=== PATIENT | female | born 1980 | race Caucasian/White ===

== ENCOUNTER 2016-11-19 08:03 | Inpatient (IN) | payer BC, OTHER ==
[~2016-11-19] VITALS: Ht 170.2 cm; Wt 54.4 kg
[2016-11-20 12:00] VITALS: BP 130/94
[2016-11-20] MEDS ORDERED: LOPERAMIDE HCL 2 MG CAPSULE PO PRN ×2 (13:00)
[2016-11-20] MEDS ORDERED: MIRALAX 17 GM POWD.PACK PO PRN (13:00)
[2016-11-20] MEDS ORDERED: IBUPROFEN 400 MG TABLET PO PRN (13:00)
[2016-11-20] MEDS ORDERED: MAG HYDROX/AL HYDROX/SIMETH 30 ML LIQUID UDC PO PRN (13:00)
[2016-11-20] MEDS ORDERED: LORAZEPAM 2 MG/1 ML VIAL IM PRN (13:00)
[2016-11-20] MEDS ORDERED: diphenhydrAMINE 50 MG CAPSULE PO PRN (13:00)
[2016-11-20] MEDS ORDERED: DICYCLOMINE HCL 20 MG TABLET PO PRN (13:00)
[2016-11-20] MEDS ORDERED: CLONIDINE HCL 0.1 MG TABLET PO PRN (13:00)
[2016-11-20] MEDS ORDERED: MAGNESIUM HYDROXIDE 30 ML LIQUID UDC PO PRN (13:00)
[2016-11-20] MEDS ORDERED: LORAZEPAM 1 MG TABLET PO PRN (13:00)
[2016-11-20] MEDS ORDERED: ACETAMINOPHEN 325 MG TABLET PO PRN (13:00)
[2016-11-20] MEDS ORDERED: HYDROXYZINE PAMOATE 25 MG CAPSULE PO PRN (13:00)
[2016-11-20] MEDS ORDERED: THIAMINE HCL 200 MG/2 ML VIAL IM ONE (13:00)
[2016-11-20] MEDS ORDERED: ONDANSETRON ODT 4 MG TAB.RAPDIS SL PRN (13:00)
--- NOTE | 2016-11-20 13:00 | NUR ---
Admissions Note 36 year old female admitted to [facility] for alcohol withdrawal. Client reports PMH of Anxiety, depression, alcohol use. Client is oriented to unit, educated about protocols and how to work TV and call light in her room. Initial VS up on admission were: BP: 130/94 HR 89 T: 98.0 R: 18 SpO2: 98% on RA, Pain 0/10. Weight: 120 pounds. Height: 5'7" CIWA: 6 Client appears anxious, fidgety, flushed face noted, skin intact with fading skin discoloration on right arm and right hip she said she must have bumped into some furiture while under the influence of alcohol. skin warm, moist. Bilateral lung clear on auscultation, abdomen soft, non-tender, no edema noted. Client is hyperverbal and doesn't remember exact dates at this time. Client reports allergy to erythromycin. Regular diet ordered. Full code status ordered. Client denies any history of seizures. Past medical history of Anxiety and depression. LBM was 11/20/16, small/brown/soft. Client's PCP is Dr. Ethel Henriquez. She gives verbal consent for pna vaccine and HIV testing. Client reports taking Microgestin Fe 1/20 daily at night time. Client states that he lives with her Mom. Client substance use is as follow, she first started drinking five years ago and soon increase her intake, she has hx of a piror detoxification treatment at [facility] for 4 days in 2014, followed with 90 days treatment at [facility] on 2014, Her longest period of sobriety is 150 days from Apr 2015-aug 2015, when she relapsed due to her depression since then she has been consuming 8-10 shots of Vodka PO 4-[address] Aragon made aware of admitting client. Urine was collected upon admission. All safety measures instituted. Seizure precaution. Call light within reach. Will continue to monitor.
[2016-11-20 13:03] LABS: *URINE HCG, QUAL NEGATIVE (NEGATIVE)
[2016-11-20 13:34] LABS: BASOPHILS # (AUTO) 0.3 K/uL (0.0-0.2); BASOPHILS % (AUTO) 4.8 % (0.0-2.0); EOSINOPHILS % (AUTO) 0.4 % (0.0-7.0); HEMATOCRIT 41.3 % (37.0-47.0); LYMPHOCYTES # (AUTO) 2.3 K/uL (0.8-4.8); LYMPHOCYTES % (AUTO) 31.9 % (20.5-51.5); MEAN CORPUSCULAR HGB CONC 34 g/dL (32.0-37.0); MEAN CORPUSCULAR VOLUME 88.6 fL (81.0-99.0); MONOCYTES # (AUTO) 0.1 K/uL (0.1-1.30); MONOCYTES % (AUTO) 1.9 % (0.0-11.0); NEUTROPHILS # (AUTO) 4.5 K/uL (1.8-8.9); PLATELET COUNT (AUTO) 189 K/uL (150-450); RED BLOOD CELL COUNT(AUTO) 4.66 MIL/uL (4.20-5.40); RED CELL DISTRIBUTION WIDTH 13.2 % (11.5-14.5); WHITE BLOOD COUNT (AUTO) 7.2 K/uL (4.0-11.2)
[2016-11-20 13:42] VITALS: BP 148/96
[2016-11-20] MEDS: LORAZEPAM 1 MG TABLET PO PRN ×2 (13:42→21:29)
[2016-11-20] MEDS: FOLIC ACID 1 MG TABLET PO SCH (13:42)
--- NOTE | 2016-11-20 13:42 | NUR ---
PRN ATIVAN 1MG Client reports nausea, no episodes of vomiting, she is anxious and irritable MB increased P100, raising her voice. skin moist, CIWA 7. Ativan 1mg PO administered, will continue to monitor. Call light within reach.
--- NOTE | 2016-11-20 13:42 | NUR ---
VIT B1 INJ administered IM to Right deltoid, tolerated well.
[2016-11-20 13:48] LABS: ALBUMIN 4.8 g/dL (3.4-5.0); BILIRUBIN,TOTAL 0.5 mg/dL (0.2-1.0); CALCIUM 8.8 mg/dL (8.5-10.1); CREATININE 0.8 mg/dL (0.6-1.3); MAGNESIUM 2.1 mg/dL (1.8-2.4); POTASSIUM 3.6 mmol/L (3.5-5.1); TOTAL PROTEIN, SERUM 9.2 g/dL (6.4-8.2)
[2016-11-20 13:55] LABS: *AMPHETAMINE, URINE NEGATIVE (NEGATIVE); *BARBITURATE, URINE NEGATIVE (NEGATIVE); *CANNABINOID, URINE NEGATIVE (NEGATIVE); *COCCAINE, URINE NEGATIVE (NEGATIVE); *OPIATE, URINE NEGATIVE (NEGATIVE); *PHENCYCLIDINE SCREEN,URINE NEGATIVE (NEGATIVE)
--- NOTE | 2016-11-20 14:01 | NUR ---
CRITICAL VALUE % ETHYL ALCOHOL 0.38% Dr. Aragon made aware, he is with client at this time, no new orders. Will continue to follow up.
[2016-11-20 14:02] LABS: THYROID STIMULATING HORMONE 0.498 mIU/mL (0.358-3.740)
[2016-11-20 14:09] LABS: HIV-1 p24 ANTIGEN NON REACTIVE (NONREACTIVE); HIV-1/2 ANTIBODY NON REACTIVE (NONREACTIVE)
--- NOTE | 2016-11-20 14:42 | NUR ---
REASSESSMENT PRN ATIVAN 1MG Client reports some relief from nausea, she appears less anxious P 88, her voice is soft. skin warm. CIWA 3. Ativan 1mg effective. Call light within reach
[2016-11-20] MEDS ORDERED: NORE-83 PO (16:04)
[2016-11-20] MEDS: GABAPENTIN 300 MG CAPSULE PO SCH (17:13)
--- NOTE | 2016-11-20 19:15 | NUR ---
START OF SHIFT Received 36 year old female patient admitted on 11/20/16 for ETOH dependency. Pt is full code with allergy to erythromycin. She reports a hx of depression, anxiety, breast augmentation 2014 and rhinoplasty in 1999. She reports drinking 8-10 shots 4-5 times per week. She denies history of seizure. She has PRN Ativan available. Per endorsement, she received PRN Ativan for CIWA: 7. Pt is alert and oriented x4, breathing is even and unlabored. Pt safe with bed locked in lowest position, side rails up x2 and call light within reach. Will continue to monitor.
--- NOTE | 2016-11-20 19:42 | NUR ---
END OF SHIFT Client is in room, sound asleep. PRN Ativan 1mg PO for CIWA 7, noted effective. She is on PRN Ativan to help with withdrawal symptoms. She reports allergy to EES, full code, regular diet. LBM 11/20/16. Zeisure precautions. Adequate intake and output. Call light within reach. Endorsed to incoming nurse.
[2016-11-20 20:00] VITALS: BP 139/90
[2016-11-20] MEDS: MICROGESTIN FE PO SCH (21:29)
--- NOTE | 2016-11-20 21:29 | NUR ---
PRN ATIVAN Pt complains of anxiety/restlessness. CIWA: 6. PRN Ativan 1 mg administered as ordered. Breathing even and unlabored, safety measures in place. Will continue to monitor effectiveness of medication.
--- NOTE | 2016-11-20 22:29 | NUR ---
PRN ATIVAN REASSESSMENT PRN medication effective. Pt reports decrease in anxiety/restlessness. CIWA:4. Breathing even and unlabored, safety measures in place. Will continue to monitor.
[2016-11-21] VITALS: BP 135/89
[2016-11-21 04:00] VITALS: BP 134/90
--- NOTE | 2016-11-21 07:15 | NUR ---
END OF SHIFT Pt is a 36 year old female patient admitted on 11/20/16 for ETOH dependency. Pt is full code with allergy to erythromycin. She reports a hx of depression, anxiety, breast augmentation 2014 and rhinoplasty in 1999. She denies history of seizure. She has PRN Ativan available. She received PRN Ativan for CIWA:6. She slept a total of 5 hrs, Intake: 1500 mL, Void: x1, BM: 0. CIWA: 4. Pt remains alert and oriented x4, breathing is even and unlabored. Pt safe with bed locked in lowest position, side rails up x2 and call light within reach. Endorsed to oncoming shift.
--- NOTE | 2016-11-21 07:30 | NUR ---
START OF SHIFT Received 36 year old female in bed, she sounds asleep, easy to arouse, RR 16. skin warm/dry to touch. She [facility] for ETOH withdrawal. She is full code with allergy to erythromycin. Regular diet. She denies any withdrawal induced-seizure. past medical history, anxiety, depression. Past surgical history breast augmentation (2014), Rhinoplasty (1999). She reports drinking 8-10 shots 4-5 days per week. PRN Ativan available to help with withdrawal symptoms. PRN Ativan 1mg for CIWA: 7, noted effective CIWA 4. bed locked in lowest position, side rails up/padded x2 and call light within reach. Will continue to monitor.
[2016-11-21 08:13] VITALS: BP 142/97
[2016-11-21] MEDS ORDERED: TUBERCULIN,PURIF.PROT.DERIV. 5 TU/0.1 ML TEST ID ONE (09:00)
[2016-11-21] MEDS: SERTRALINE HCL 50 MG TABLET PO SCH (09:35)
[2016-11-21] MEDS: THIAMINE HCL 100 MG TABLET PO SCH (09:35)
[2016-11-21] MEDS: GABAPENTIN 300 MG CAPSULE PO SCH ×2 (09:36→16:53)
[2016-11-21] MEDS: MULTIVITAMINS,THERAPEUTIC TABLET PO SCH (09:36)
[2016-11-21] MEDS: DOCUSATE SODIUM 250 MG CAPSULE PO SCH (09:36)
[2016-11-21] MEDS: FOLIC ACID 1 MG TABLET PO SCH (09:36)
--- NOTE | 2016-11-21 09:39 | NUR ---
Client refused TB test per Dr. Aragon to order XR chest Medical clearance of TB.
[2016-11-21 12:00] VITALS: BP 140/97
[2016-11-21] MEDS ORDERED: Sertraline Hcl PO (12:40)
[2016-11-21] MEDS ORDERED: Gabapentin PO (12:40)
[2016-11-21 15:04] LABS: *AMPHETAMINE, URINE NEGATIVE (NEGATIVE); *BARBITURATE, URINE NEGATIVE (NEGATIVE); *CANNABINOID, URINE NEGATIVE (NEGATIVE); *COCCAINE, URINE NEGATIVE (NEGATIVE); *OPIATE, URINE NEGATIVE (NEGATIVE); *PHENCYCLIDINE SCREEN,URINE NEGATIVE (NEGATIVE)
[2016-11-21 16:00] VITALS: BP 133/93
--- NOTE | 2016-11-21 19:15 | NUR ---
START OF SHIFT Received 36 year old female patient admitted on 11/20/16 for ETOH dependency. Pt is full code with allergy to erythromycin. She reports a hx of depression, anxiety, breast augmentation 2014 and rhinoplasty in 1999. She reports drinking 8-10 shots 4-5 times per week. She denies history of seizure. She has PRN Ativan available. Per endorsement, she is scheduled to be DC tomorrow to [facility] retreat. She did not request or receive PRN medications. Pt is alert and oriented x4, breathing is even and unlabored. Pt safe with bed locked in lowest position, side rails up x2 and call light within reach. Will continue to monitor.
--- NOTE | 2016-11-21 19:34 | NUR ---
END OF SHIFT Endorsed client to incoming nurse, she is 36 year old female, A/Ox4, skin discoloration x 1 on R arm, x 1 on R hip, she reports no discomfort. She appears slightly anxious, denies any N/V/D. She was compliant with 2/3 of group therapy. Adequate intake and output. XR chest ordered to medical clearance of active TB. She is schedule for discharge tomorrow to [facility]. urine collected and results are on chart. [facility]H withdrawal. She is full code with allergy to erythromycin. Regular diet. She denies any withdrawal induced-seizure. past medical history, anxiety, depression. Past surgical history breast augmentation (2014), Rhinoplasty (1999). She reports drinking 8-10 shots 4-5 days per week. bed locked in lowest position, side rails up/padded x2 and call light within reach.
[2016-11-21 20:00] VITALS: BP 155/95
[2016-11-21] MEDS: MICROGESTIN FE PO SCH (20:43)
--- NOTE | 2016-11-21 20:44 | NUR ---
PRN ZOFRAN Pt complains of nausea with no episode of vomiting. PRN Zofran administered as ordered. Breathing even and unlabored, safety measures in place. Will continue to monitor effectiveness.
--- NOTE | 2016-11-21 21:44 | NUR ---
PRN ZOFRAN REASSESSMENT PRN medication effective. Pt reports decrease in nausea. Breathing even and unlabored, safety measures in place. Will continue to monitor.
[2016-11-22] VITALS: BP 142/92
[2016-11-22 04:00] VITALS: BP 138/97
--- NOTE | 2016-11-22 07:04 | NUR ---
END OF SHIFT Pt is a 36 year old female patient admitted on 11/20/16 for ETOH dependency. Pt is full code with allergy to erythromycin. She reports a hx of depression, anxiety, breast augmentation 2014 and rhinoplasty in 1999. She was not placed on taper but had PRN Ativan available. She is scheduled to be DC today to [facility] retreat. She received PRN Zofran d.t complaints of nausea with no episode of vomiting. PRN medication was effective. She slept a total of 5 hrs, Intake: 1000mL, Void: x3, BM:0, CIWA:3. Pt remains alert and oriented x4, breathing is even and unlabored. Pt safe with bed locked in lowest position, side rails up x2 and call light within reach. Will endorse to oncoming nurse.
--- NOTE | 2016-11-22 07:43 | NUR ---
START OF SHIFT NOTE: Received report from senior outside sales representative nurse. Pt is a 36 year old female admitted on 11/20/16 for ETOH dependency. To be discharged today. Pt is alert and oriented X4. Color good, skin warm and dry. Respirations even and unlabored. Safety precautions observed. Call light within reach.
[2016-11-22 08:00] VITALS: BP 135/95
[2016-11-22] MEDS: THIAMINE HCL 100 MG TABLET PO SCH (08:33)
[2016-11-22] MEDS: MULTIVITAMINS,THERAPEUTIC TABLET PO SCH (08:33)
[2016-11-22] MEDS: SERTRALINE HCL 50 MG TABLET PO SCH (08:33)
[2016-11-22] MEDS: FOLIC ACID 1 MG TABLET PO SCH (08:33)
[2016-11-22] MEDS: DOCUSATE SODIUM 250 MG CAPSULE PO SCH (08:33)
[2016-11-22] MEDS: GABAPENTIN 300 MG CAPSULE PO SCH (08:34)
--- NOTE | 2016-11-22 09:00 | NUR ---
[facility]SS Discharge paperwork signed. No home meds
--- NOTE | 2016-11-22 11:40 | NUR ---
Pt discharged in stable condition with all valuables and belongings. No home meds. Denies SI/HI. To [facility] via [facility] private car.
[2016-11-23 06:06] LABS: HCV AB 0.1 s/co ratio (0.0-0.9); HEPATITIS B CORE AB, IgM Negative (Negative); HEPATITIS B SURFACE AG Negative (Negative)
== END 2016-11-22 11:40 | disposition other institution (70) | DRG 895 ==
LOC: MEDSURG3 11-20 10:09 → SRC 11-20 12:28
PROVIDERS: ADMIT Internal Medicine; ATTEND Internal Medicine
PROC: HZ2ZZZZ Detoxification Services for Substance Abuse Treatment (ICD-10-PCS; principal; 2016-11-20)
PROC: HZ51ZZZ Individual Psychotherapy for Substance Abuse Treatment, Behavioral (ICD-10-PCS; 2016-11-21)
DX: F10.220 Alcohol dependence with intoxication, uncomplicated (principal); F10.230 Alcohol dependence with withdrawal, uncomplicated; Y90.9 Presence of alcohol in blood, level not specified; F32.9 Major depressive disorder, single episode, unspecified; Z79.899 Other long term (current) drug therapy; F17.210 Nicotine dependence, cigarettes, uncomplicated; F41.9 Anxiety disorder, unspecified
CPT/HCPCS: 36415; 71010; 80307; 83690; 83735; 84443; 84703; 85025; 86592; 86705; 86803; 87340; 87806; G6040-TC; J3411; Q0162